=== PATIENT | male | born 1965 | race African-American/Black ===

== ENCOUNTER 2018-08-13 14:16 | Emergency (ER) | payer MEDICARE, OTHER ==
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
[2018-08-13 15:11] LABS: BASO # 0.1 x10^3/uL (0.0-0.2); BASO % 1 % (0-3); EOS % 1 % (0-3); HEMATOCRIT 36.7 % (39.0-53.0); HEMOGLOBIN 12.3 g/dL (13.0-17.5); LYMPH # 2.2 x10^3/uL (1.0-4.8); LYMPH % 52 % (24-48); MEAN CORPUSCULAR HEMOGLOBIN 27 pg (25-35); MEAN CORPUSCULAR HGB CONC 33 g/dL (31-37); MEAN CORPUSCULAR VOLUME 80 fL (79-100); MONO # 0.4 x10^3/uL (0.0-1.1); MONO % 9 % (0-9); NEUT # 1.5 x10^3uL (1.8-7.7); NEUT % 36 % (31-73); PLATELET COUNT 129 x10^3/uL (140-400); RED BLOOD COUNT 4.61 x10^6/uL (4.30-5.70); RED CELL DISTRIBUTION WIDTH 13.3 % (11.5-14.5); WHITE BLOOD COUNT 4.2 x10^3/uL (4.0-11.0)
[2018-08-13 15:24] LABS: ALBUMIN 3.7 g/dL (3.4-5.0); ALBUMIN/GLOBULIN RATIO 0.9 (1.0-1.7); CALCIUM 9.1 mg/dL (8.5-10.1); CREATININE 0.8 mg/dL (0.7-1.3); GFR 121.4; MAGNESIUM 2.1 mg/dL (1.8-2.4); POTASSIUM 4.3 mmol/L (3.5-5.1); TOTAL BILIRUBIN 0.2 mg/dL (0.2-1.0); TOTAL PROTEIN 7.9 g/dL (6.4-8.2)
[2018-08-13 17:14] VITALS: BP 128/85
[2018-08-13 17:16] LABS: BACTERIA,URINE 0 /HPF (0-FEW); BILIRUBIN,URINE NEG (NEG); CLARITY,URINE HAZY; COLOR,URINE YELLOW; GLUCOSE,URINE NEG (NEG); NITRITE,URINE NEG (NEG); RBC,URINE 0 /HPF (0-2); SQUAMOUS EPITHELIAL CELL,UR OCC /LPF; UROBILINOGEN,URINE 0.2 mg/dL (0.2 mg/dL); WBC,URINE 0 /HPF (0-4)
--- NOTE | 2018-08-13 17:53 | EKG ---
[address] [address] Test Date: 2018-08-13 Test Time: 14:46:03 Pat Name: LEATHA URBANO Department: Room: Gender: M Application Design Engineer: LOVELY : 1965 Requested By: LUIS STEINBERG Order Number: [id number] Reading MD: Measurements Intervals [place] Rate: 75 P: 45 DE: 162 QRS: 82 QRSD: 102 T: 13 QT: 358 QTc: 402 Interpretive Statements SINUS RHYTHM NORMAL ECG RI6.01 No previous ECG available for comparison
== END 2018-08-13 19:39 | disposition home or self-care (01) ==
LOC: ER 14:16
DX: Z02.89 Encounter for other administrative examinations (principal); F41.9 Anxiety disorder, unspecified; I10 Essential (primary) hypertension; F03.90 Unspecified dementia, unspecified severity, without behavioral disturbance, psychotic disturbance, mood disturbance, and anxiety
CPT/HCPCS: 36415; 80053; 81001; 83540; 83550; 83735; 85025; 93005; 99285

== ENCOUNTER 2018-08-20 15:37 | Inpatient (IN) | payer MEDICARE ==
[~2018-08-20] VITALS: Ht 172.7 cm; Wt 83.9 kg
[2018-08-20 16:32] LABS: BACTERIA,URINE 0 /HPF (0-FEW); BILIRUBIN,URINE NEG (NEG); CLARITY,URINE HAZY; COLOR,URINE YELLOW; GLUCOSE,URINE NEG (NEG); NITRITE,URINE NEG (NEG); RBC,URINE 0 /HPF (0-2); SQUAMOUS EPITHELIAL CELL,UR OCC /LPF; UROBILINOGEN,URINE 0.2 mg/dL (0.2 mg/dL); WBC,URINE 0 /HPF (0-4)
[2018-08-20 16:34] LABS: AMPHETAMINE/METHAMPHETAMINE NEG (NEG); BARBITURATES NEG (NEG); BENZODIAZEPINES NEG (NEG); CANNABINOIDS NEG (NEG); COCAINE NEG (NEG); METHADONE NEG (NEG); OPIATES NEG (NEG); PHENCYCLIDINE NEG (NEG)
[2018-08-20 16:40] LABS: ALBUMIN 3.9 g/dL (3.4-5.0); ALBUMIN/GLOBULIN RATIO 0.9 (1.0-1.7); CALCIUM 9.4 mg/dL (8.5-10.1); CREATININE 0.8 mg/dL (0.7-1.3); GFR 121.4; POTASSIUM 4.2 mmol/L (3.5-5.1); TOTAL BILIRUBIN 0.2 mg/dL (0.2-1.0); TOTAL PROTEIN 8.2 g/dL (6.4-8.2)
[2018-08-20 16:45] LABS: BASO % 1 % (0-3); EOS # 0.1 x10^3/uL (0.0-0.7); EOS % 1 % (0-3); HEMATOCRIT 37.1 % (39.0-53.0); HEMOGLOBIN 12.3 g/dL (13.0-17.5); LYMPH # 2.3 x10^3/uL (1.0-4.8); LYMPH % 53 % (24-48); MEAN CORPUSCULAR HEMOGLOBIN 27 pg (25-35); MEAN CORPUSCULAR HGB CONC 33 g/dL (31-37); MEAN CORPUSCULAR VOLUME 81 fL (79-100); MONO # 0.3 x10^3/uL (0.0-1.1); MONO % 8 % (0-9); NEUT # 1.6 x10^3uL (1.8-7.7); NEUT % 38 % (31-73); PLATELET COUNT 121 x10^3/uL (140-400); RED BLOOD COUNT 4.56 x10^6/uL (4.30-5.70); RED CELL DISTRIBUTION WIDTH 13.4 % (11.5-14.5); WHITE BLOOD COUNT 4.3 x10^3/uL (4.0-11.0)
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
[2018-08-20 17:15] VITALS: BP 161/94
[2018-08-20] MEDS ORDERED: NON FORMULARY ITEM (Menthol (Biofreeze) 1 APP) TP PRN (18:15)
[2018-08-20] MEDS ORDERED: MAGNESIUM HYDROXIDE 2,400 MG/30 ML ORAL.SUSP. PO PRN (18:15)
[2018-08-20] MEDS ORDERED: ACETAMINOPHEN 325 MG TABLET PO PRN (18:15)
[2018-08-20] MEDS ORDERED: MAG HYDROX/AL HYDROX/SIMETH 30 ML ORAL.SUSP PO PRN (18:15)
[2018-08-20] MEDS ORDERED: DOCU-109 PO (18:41)
[2018-08-20] MEDS ORDERED: SHAR1SUP RC (18:41)
[2018-08-20] MEDS ORDERED: POLY17PO5 PO (18:41)
[2018-08-20] MEDS ORDERED: CARB200T PO (18:41)
[2018-08-20] MEDS ORDERED: DIVA500T2 PO (18:41)
[2018-08-20] MEDS ORDERED: QUET25TA5 PO (18:41)
[2018-08-20] MEDS ORDERED: ACET325T9 PO (18:41)
[2018-08-20] MEDS ORDERED: MELA3TAB2 PO (18:41)
[2018-08-20] MEDS ORDERED: MENT118G TP (18:41)
[2018-08-20] MEDS ORDERED: PHEN1SUP75 RC (18:41)
[2018-08-20] MEDS ORDERED: FLUT9.9S NS (18:41)
[2018-08-20] MEDS ORDERED: ECHI400C12 PO (18:41)
[2018-08-20] MEDS ORDERED: AMLO5TAB10 PO (18:41)
[2018-08-20] MEDS ORDERED: LORA-254 PO (18:41)
[2018-08-20] MEDS ORDERED: PHENYLEPH/MINERAL OIL/PETROLAT RECTAL OINTMENT 57GM TUBE. RC PRN (19:15)
[2018-08-20] MEDS: carBAMazepine 200 MG TABLET PO SCH (20:19)
[2018-08-20] MEDS: DOCUSATE SODIUM 100 MG CAPSULE PO SCH (20:19)
[2018-08-20] MEDS: QUEtiapine 25 MG TABLET. PO SCH (20:20)
[2018-08-20] MEDS: MELATONIN 3 MG TABLET PO SCH (20:20)
[2018-08-20] MEDS: DIVALPROEX SODIUM 250 MG TABLET.DR. PO SCH (20:20)
[2018-08-20] MEDS: METHYL SALICYLATE/MENTHOL TOPICAL OINTMENT 29GM TUBE. TP PRN (21:20)
--- NOTE | 2018-08-20 22:11 | PDOC ---
Exam Note: Jm Note: Please also refer to the separate dictated note~for this date of service dictated separately. Discussed the patient with Nursing staff reviewed the chart.~Reviewed interim history and current functioning. Reviewed vital signs,~Labs/ Radiology~and current medications noted below. Continue current treatment with the changes noted in the dictated addendum note Assessment: Vital Signs/I&O: Vital Signs Date Time Temp Pulse Resp B/P (MAP) Pulse Ox O2 Delivery O2 Flow Rate FiO2 08/20/18 17:15 99.2 94 18 161/94 (116) 100 Room Air Labs: Laboratory Tests Test 08/20/18 16:12 08/20/18 19:31 White Blood Count 4.3 x10^3/uL (4.0-11.0) Red Blood Count 4.56 x10^6/uL (4.30-5.70) Hemoglobin 12.3 g/dL (13.0-17.5) L Hematocrit 37.1 % (39.0-53.0) L Mean Corpuscular Volume 81 fL (79-100) Mean Corpuscular Hemoglobin 27 pg (25-35) Mean Corpuscular Hemoglobin Concent 33 g/dL (31-37) Red Cell Distribution Width 13.4 % (11.5-14.5) Platelet Count 121 x10^3/uL (140-400) L Neutrophils (%) (Auto) 38 % (31-73) Lymphocytes (%) (Auto) 53 % (24-48) H Monocytes (%) (Auto) 8 % (0-9) Eosinophils (%) (Auto) 1 % (0-3) Basophils (%) (Auto) 1 % (0-3) Neutrophils # (Auto) 1.6 x10^3uL (1.8-7.7) L Lymphocytes # (Auto) 2.3 x10^3/uL (1.0-4.8) Monocytes # (Auto) 0.3 x10^3/uL (0.0-1.1) Eosinophils # (Auto) 0.1 x10^3/uL (0.0-0.7) Basophils # (Auto) 0.0 x10^3/uL (0.0-0.2) Urine Collection Type Unknown Urine Color Yellow Urine Clarity Hazy Urine pH 7.5 Urine Specific [place] 1.020 Urine Protein Neg (NEG-TRACE) Urine Glucose (UA) Neg mg/dL (NEG) Urine Ketones (Stick) Neg mg/dL (NEG) Urine Blood Neg (NEG) Urine Nitrite Neg (NEG) Urine Bilirubin Neg (NEG) Urine Urobilinogen Dipstick 0.2 mg/dL (0.2 mg/dL) Urine Leukocyte Esterase Neg (NEG) Urine RBC 0 /HPF (0-2) Urine WBC 0 /HPF (0-4) Urine Squamous Epithelial Cells Occ /LPF Urine Bacteria 0 /HPF (0-FEW) Sodium Level 140 mmol/L (136-145) Potassium Level 4.2 mmol/L (3.5-5.1) Chloride Level 105 mmol/L (98-107) Carbon Dioxide Level 28 mmol/L (21-32) Anion Gap 7 (6-14) Blood Urea Nitrogen 11 mg/dL (8-26) Creatinine 0.8 mg/dL (0.7-1.3) Estimated GFR (Cockcroft-Gault) 121.4 BUN/Creatinine Ratio 14 (6-20) Glucose Level 77 mg/dL (70-99) Calcium Level 9.4 mg/dL (8.5-10.1) Magnesium Level 2.1 mg/dL (1.8-2.4) Total Bilirubin 0.2 mg/dL (0.2-1.0) Aspartate Amino Transferase (AST) 18 U/L (15-37) Alanine Aminotransferase (ALT) 23 U/L (16-63) Alkaline Phosphatase 92 U/L (46-116) Total Protein 8.2 g/dL (6.4-8.2) Albumin 3.9 g/dL (3.4-5.0) Albumin/Globulin Ratio 0.9 (1.0-1.7) L Urine Opiates Screen Neg (NEG) Urine Methadone Screen Neg (NEG) Urine Barbiturates Neg (NEG) Urine Phencyclidine Screen Neg (NEG) Urine Amphetamine/Methamphetamine Neg (NEG) Urine Benzodiazepines Screen Neg (NEG) Urine Cocaine Screen Neg (NEG) Urine Cannabinoids Screen Neg (NEG) Ethyl Alcohol Level < 10 mg/dL (0-10) Urine Ethyl Alcohol Neg (NEG) Glucose (Fingerstick) 106 mg/dL (70-99) H Current Medications: Meds: Current Medications Medications (Trade) Dose Ordered Sig/Kassandra Route PRN Reason Start Time Stop Time Status Last Admin Dose Admin Multi-Ingredient Ointment (Analgesic Wallace) 1 amanda PRN QID PRN TP MUSCLE PAIN 08/20/18 18:15 08/20/18 21:20 Carbamazepine (TEGretol) 200 mg BID PO 08/20/18 21:00 08/20/18 20:19 Divalproex Sodium (Depakote) 250 mg BID PO 08/20/18 21:00 08/20/18 20:20 Docusate Sodium (Colace) 100 mg BID PO 08/20/18 21:00 08/20/18 20:19 Melatonin 6 mg QHS PO 08/20/18 21:00 08/20/18 20:20 Quetiapine Fumarate (SEROquel) 25 mg TID PO 08/20/18 21:00 08/20/18 20:20 I have reviewed the current psychotropics carefully including drug interactions. Risk benefit ratio favors no change other than as noted in my dictated progress note. Diagnosis: Problems: (1) Anxiety disorder (2) Impulse control disorder (3) Dementia, vascular, with delusions (4) Dementia, vascular, with depression (5) Dementia in Alzheimer's disease with delusions (6) Dementia in Alzheimer's disease with depression (7) Impulse control disorder (8) Borderline intellectual disability MAVIS FRITZ MD Aug 20, 2018 22:11
[2018-08-21 03:08] LABS: HEMOGLOBIN A1C 5.3 % (4.8-5.6); THYROXINE 4.2 ug/dL (4.5-12.0)
[2018-08-21 06:13] VITALS: BP 151/100
[2018-08-21 07:41] LABS: VAL ACID 39 mcg/mL (50-100)
[2018-08-21] MEDS: DIVALPROEX SODIUM 250 MG TABLET.DR. PO SCH (08:07)
[2018-08-21] MEDS: QUEtiapine 25 MG TABLET. PO SCH ×3 (08:07→19:52)
[2018-08-21] MEDS: carBAMazepine 200 MG TABLET PO SCH ×2 (08:07→19:52)
[2018-08-21] MEDS: DOCUSATE SODIUM 100 MG CAPSULE PO SCH ×2 (08:08→19:52)
[2018-08-21] MEDS: FLUTICASONE 50MCG/NASAL SPRAY 16GM BOTTLE. NS SCH (08:08)
[2018-08-21] MEDS: LORazepam 0.5 MG TABLET PO SCH (08:12)
[2018-08-21] MEDS: amLODIPine BESYLATE 5 MG TABLET PO SCH (08:12)
[2018-08-21] MEDS ORDERED: POLYETHYLENE GLYCOL 3350 17 GM PACKET. PO PRN (09:00)
[2018-08-21] MEDS ORDERED: ECHINACEA PO SCH (09:00)
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
[2018-08-21 15:54] VITALS: BP 118/77
[2018-08-21 18:12] LABS: CARBAM 5.7 mcg/mL (4.0-12.0)
[2018-08-21 18:18] LABS: THYROID STIM HORMONE (TSH) 3.346 uIU/mL (0.358-3.740)
[2018-08-21] MEDS: MELATONIN 3 MG TABLET PO SCH (19:52)
[2018-08-21] MEDS: DIVALPROEX 125 MG CAP.SPRINK PO SCH (19:54)
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
[2018-08-22 06:12] VITALS: BP 139/83
[2018-08-22] MEDS: METHYL SALICYLATE/MENTHOL TOPICAL OINTMENT 29GM TUBE. TP PRN (06:12)
[2018-08-22] MEDS: carBAMazepine 200 MG TABLET PO SCH ×2 (07:27→20:00)
[2018-08-22] MEDS: amLODIPine BESYLATE 5 MG TABLET PO SCH (07:27)
[2018-08-22] MEDS: QUEtiapine 25 MG TABLET. PO SCH ×3 (07:27→20:00)
[2018-08-22] MEDS: DOCUSATE SODIUM 100 MG CAPSULE PO SCH ×2 (07:27→20:00)
[2018-08-22] MEDS: FLUTICASONE 50MCG/NASAL SPRAY 16GM BOTTLE. NS SCH (07:29)
[2018-08-22] MEDS: LORazepam 0.5 MG TABLET PO SCH (07:29)
[2018-08-22] MEDS: DIVALPROEX SODIUM 250 MG TABLET.DR. PO SCH (09:00)
--- NOTE | 2018-08-22 10:09 | PDOC ---
Exam Note: Jm Note: Late entry for DOS 08/21/2018. Please also refer to the separate dictated note~for this date of service dictated separately.~Patient seen individually. Discussed the patient with Nursing staff reviewed the chart.~Reviewed interim history and current functioning. Reviewed vital signs,~Labs/ Radiology~and current medications noted below. Continue current treatment with the changes noted in the dictated addendum note Assessment: Vital Signs/I&O: Vital Signs Date Time Temp Pulse Resp B/P (MAP) Pulse Ox O2 Delivery O2 Flow Rate FiO2 08/22/18 07:27 86 139/83 08/22/18 06:12 98.4 16 94 Room Air I & O 08/21/18 08/21/18 08/22/18 14:59 22:59 06:59 Intake Total 480 ml 480 ml 240 ml Balance 480 ml 480 ml 240 ml Current Medications: Meds: Current Medications Medications (Trade) Dose Ordered Sig/Kassandra Route PRN Reason Start Time Stop Time Status Last Admin Dose Admin Divalproex Sodium (Depakote) 250 mg DAILY PO 08/22/18 09:00 08/22/18 09:00 Divalproex Sodium (Depakote Sprinkles) 500 mg HS PO 08/21/18 21:00 08/21/18 19:54 I have reviewed the current psychotropics carefully including drug interactions. Risk benefit ratio favors no change other than as noted in my dictated progress note. Diagnosis: Problems: (1) Anxiety disorder (2) Impulse control disorder (3) Dementia, vascular, with delusions (4) Dementia, vascular, with depression (5) Dementia in Alzheimer's disease with delusions (6) Dementia in Alzheimer's disease with depression (7) Impulse control disorder (8) Borderline intellectual disability MAVIS FRITZ MD Aug 22, 2018 10:09
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
[2018-08-22 15:50] VITALS: BP 148/85
[2018-08-22] MEDS: DIVALPROEX 125 MG CAP.SPRINK PO SCH (20:00)
[2018-08-22] MEDS: MELATONIN 3 MG TABLET PO SCH (20:01)
--- NOTE | 2018-08-22 22:15 | PDOC ---
Exam Note: Jm Note: Please also refer to the separate dictated note~for this date of service dictated separately.~Patient seen individually. Discussed the patient with Nursing staff reviewed the chart.~Reviewed interim history and current functioning. Reviewed vital signs,~Labs/ Radiology~and current medications noted below. Continue current treatment with the changes noted in the dictated addendum note Assessment: Vital Signs/I&O: Vital Signs Date Time Temp Pulse Resp B/P (MAP) Pulse Ox O2 Delivery O2 Flow Rate FiO2 08/22/18 15:50 97.6 82 18 148/85 (106) 94 08/22/18 06:12 Room Air I & O 08/21/18 08/21/18 08/22/18 14:59 22:59 06:59 Intake Total 480 ml 480 ml 240 ml Balance 480 ml 480 ml 240 ml Current Medications: Meds: Current Medications Medications (Trade) Dose Ordered Sig/Kassandra Route PRN Reason Start Time Stop Time Status Last Admin Dose Admin Divalproex Sodium (Depakote) 250 mg DAILY PO 08/22/18 09:00 08/22/18 09:00 I have reviewed the current psychotropics carefully including drug interactions. Risk benefit ratio favors no change other than as noted in my dictated progress note. Diagnosis: Problems: (1) Anxiety disorder (2) Impulse control disorder (3) Dementia, vascular, with delusions (4) Dementia, vascular, with depression (5) Dementia in Alzheimer's disease with delusions (6) Dementia in Alzheimer's disease with depression (7) Impulse control disorder (8) Borderline intellectual disability MAVIS FRITZ MD Aug 22, 2018 22:15
[2018-08-23 05:48] VITALS: BP 125/82
[2018-08-23] MEDS: DIVALPROEX SODIUM 250 MG TABLET.DR. PO SCH (07:37)
[2018-08-23] MEDS: carBAMazepine 200 MG TABLET PO SCH ×2 (07:37→20:01)
[2018-08-23] MEDS: DOCUSATE SODIUM 100 MG CAPSULE PO SCH ×2 (07:38→20:01)
[2018-08-23] MEDS: QUEtiapine 25 MG TABLET. PO SCH ×3 (07:38→20:01)
[2018-08-23] MEDS: amLODIPine BESYLATE 5 MG TABLET PO SCH (07:39)
[2018-08-23] MEDS: FLUTICASONE 50MCG/NASAL SPRAY 16GM BOTTLE. NS SCH (07:41)
[2018-08-23] MEDS: LORazepam 0.5 MG TABLET PO SCH (07:41)
[2018-08-23] MEDS: ACETAMINOPHEN 325 MG TABLET PO PRN (12:55)
[2018-08-23 15:35] VITALS: BP 118/77
[2018-08-23] MEDS: DIVALPROEX 125 MG CAP.SPRINK PO SCH (20:01)
[2018-08-23] MEDS: MELATONIN 3 MG TABLET PO SCH (20:01)
--- NOTE | 2018-08-23 22:36 | PDOC ---
Exam Note: Jm Note: Please also refer to the separate dictated note~for this date of service dictated separately.~Patient seen individually. Discussed the patient with Nursing staff reviewed the chart.~Reviewed interim history and current functioning. Reviewed vital signs,~Labs/ Radiology~and current medications noted below. Continue current treatment with the changes noted in the dictated addendum note Assessment: Vital Signs/I&O: Vital Signs Date Time Temp Pulse Resp B/P (MAP) Pulse Ox O2 Delivery O2 Flow Rate FiO2 08/23/18 15:35 97.8 84 19 118/77 (91) 100 Room Air I & O 08/22/18 08/22/18 08/23/18 14:59 22:59 06:59 Intake Total 720 ml 600 ml Balance 720 ml 600 ml Current Medications: I have reviewed the current psychotropics carefully including drug interactions. Risk benefit ratio favors no change other than as noted in my dictated progress note. Diagnosis: Problems: (1) Anxiety disorder (2) Impulse control disorder (3) Dementia, vascular, with delusions (4) Dementia, vascular, with depression (5) Dementia in Alzheimer's disease with delusions (6) Dementia in Alzheimer's disease with depression (7) Impulse control disorder (8) Borderline intellectual disability MAVIS FRITZ MD Aug 23, 2018 22:36
[2018-08-24 05:45] VITALS: BP 116/85
[2018-08-24 06:36] LABS: BASO % 1 % (0-3); EOS # 0.1 x10^3/uL (0.0-0.7); EOS % 2 % (0-3); HEMATOCRIT 36.3 % (39.0-53.0); HEMOGLOBIN 12.1 g/dL (13.0-17.5); LYMPH # 2.3 x10^3/uL (1.0-4.8); LYMPH % 55 % (24-48); MEAN CORPUSCULAR HEMOGLOBIN 27 pg (25-35); MEAN CORPUSCULAR HGB CONC 33 g/dL (31-37); MEAN CORPUSCULAR VOLUME 82 fL (79-100); MONO # 0.3 x10^3/uL (0.0-1.1); MONO % 8 % (0-9); NEUT # 1.4 x10^3uL (1.8-7.7); NEUT % 34 % (31-73); PLATELET COUNT 114 x10^3/uL (140-400); RED BLOOD COUNT 4.43 x10^6/uL (4.30-5.70); RED CELL DISTRIBUTION WIDTH 13.6 % (11.5-14.5); WHITE BLOOD COUNT 4.1 x10^3/uL (4.0-11.0)
[2018-08-24 06:47] LABS: ALBUMIN 3.4 g/dL (3.4-5.0); ALBUMIN/GLOBULIN RATIO 0.8 (1.0-1.7); CALCIUM 8.9 mg/dL (8.5-10.1); CREATININE 0.8 mg/dL (0.7-1.3); GFR 121.4; POTASSIUM 4.4 mmol/L (3.5-5.1); TOTAL BILIRUBIN 0.2 mg/dL (0.2-1.0); TOTAL PROTEIN 7.5 g/dL (6.4-8.2)
[2018-08-24 07:10] LABS: VAL ACID 45 mcg/mL (50-100)
[2018-08-24] MEDS: DOCUSATE SODIUM 100 MG CAPSULE PO SCH ×2 (08:02→19:40)
[2018-08-24] MEDS: carBAMazepine 200 MG TABLET PO SCH ×2 (08:03→19:40)
[2018-08-24] MEDS: QUEtiapine 25 MG TABLET. PO SCH ×3 (08:03→19:40)
[2018-08-24] MEDS: DIVALPROEX SODIUM 250 MG TABLET.DR. PO SCH (08:03)
[2018-08-24] MEDS: amLODIPine BESYLATE 5 MG TABLET PO SCH (08:03)
[2018-08-24] MEDS: FLUTICASONE 50MCG/NASAL SPRAY 16GM BOTTLE. NS SCH (08:04)
[2018-08-24] MEDS: LORazepam 0.5 MG TABLET PO SCH (08:05)
[2018-08-24 15:59] VITALS: BP 121/80
--- NOTE | 2018-08-24 17:58 | PN ---
DATE: 08/22/2018 PSYCHIATRIC PROGRESS NOTE This late entry of August 22 covers the elements not covered in my initial note. SUBJECTIVE: I met with the patient in the evening of August 22. The patient slept 7 hours previous night. He has been sexually inappropriate, tried to grab the social service staff on their bottom the day before, blowing kisses at nursing staff, oblivious of the inappropriateness of this, partly consequent to his intellectual disability. REVIEW OF SYSTEMS: Ambulation impaired, in wheelchair. No CV, , pulmonary, eye, ENT system symptoms on review. Reliability poor. MENTAL STATUS EXAM: Oriented to himself. Insight, judgment, recent and remote memory, attention, concentration, fund of knowledge poor, consistent with his diagnosis mentioned in my initial note. PLAN: Continue current psychotropics. Depakote has been increased. We will reach a therapeutic level and then decide whether Provera might be an option. Maintain Tegretol, may need to check a Tegretol blood level as well. Rest unchanged including Ativan, which at some point we will taper and the Seroquel 25 mg t.i.d. MAN Elvin FRITZ MD DR: STEPH/payal JOB#: [id number] / [id number]
[2018-08-24] MEDS: DIVALPROEX 125 MG CAP.SPRINK PO SCH (19:40)
[2018-08-24] MEDS: MELATONIN 3 MG TABLET PO SCH (19:40)
--- NOTE | 2018-08-24 22:12 | PDOC ---
Exam Note: Jm Note: Please also refer to the separate dictated note~for this date of service dictated separately.~Patient seen individually. Discussed the patient with Nursing staff reviewed the chart.~Reviewed interim history and current functioning. Reviewed vital signs,~Labs/ Radiology~and current medications noted below. Continue current treatment with the changes noted in the dictated addendum note Assessment: Vital Signs/I&O: Vital Signs Date Time Temp Pulse Resp B/P (MAP) Pulse Ox O2 Delivery O2 Flow Rate FiO2 08/24/18 15:59 97.9 86 20 121/80 (94) 99 08/24/18 05:45 Room Air I & O 08/23/18 08/23/18 08/24/18 14:59 22:59 06:59 Intake Total 720 ml 240 ml 420 ml Balance 720 ml 240 ml 420 ml Labs: Laboratory Tests Test 08/24/18 06:23 White Blood Count 4.1 x10^3/uL (4.0-11.0) Red Blood Count 4.43 x10^6/uL (4.30-5.70) Hemoglobin 12.1 g/dL (13.0-17.5) L Hematocrit 36.3 % (39.0-53.0) L Mean Corpuscular Volume 82 fL (79-100) Mean Corpuscular Hemoglobin 27 pg (25-35) Mean Corpuscular Hemoglobin Concent 33 g/dL (31-37) Red Cell Distribution Width 13.6 % (11.5-14.5) Platelet Count 114 x10^3/uL (140-400) L Neutrophils (%) (Auto) 34 % (31-73) Lymphocytes (%) (Auto) 55 % (24-48) H Monocytes (%) (Auto) 8 % (0-9) Eosinophils (%) (Auto) 2 % (0-3) Basophils (%) (Auto) 1 % (0-3) Neutrophils # (Auto) 1.4 x10^3uL (1.8-7.7) L Lymphocytes # (Auto) 2.3 x10^3/uL (1.0-4.8) Monocytes # (Auto) 0.3 x10^3/uL (0.0-1.1) Eosinophils # (Auto) 0.1 x10^3/uL (0.0-0.7) Basophils # (Auto) 0.0 x10^3/uL (0.0-0.2) Sodium Level 141 mmol/L (136-145) Potassium Level 4.4 mmol/L (3.5-5.1) Chloride Level 105 mmol/L (98-107) Carbon Dioxide Level 27 mmol/L (21-32) Anion Gap 9 (6-14) Blood Urea Nitrogen 10 mg/dL (8-26) Creatinine 0.8 mg/dL (0.7-1.3) Estimated GFR (Cockcroft-Gault) 121.4 BUN/Creatinine Ratio 13 (6-20) Glucose Level 107 mg/dL (70-99) H Calcium Level 8.9 mg/dL (8.5-10.1) Total Bilirubin 0.2 mg/dL (0.2-1.0) Aspartate Amino Transferase (AST) 15 U/L (15-37) Alanine Aminotransferase (ALT) 20 U/L (16-63) Alkaline Phosphatase 84 U/L (46-116) Total Protein 7.5 g/dL (6.4-8.2) Albumin 3.4 g/dL (3.4-5.0) Albumin/Globulin Ratio 0.8 (1.0-1.7) L Valproic Acid Level 45 mcg/mL (50-100) L Valproic Acid Last Dose Date 08/23/18 Valproic Acid Last Dose Time 2100 Current Medications: Meds: Current Medications Medications (Trade) Dose Ordered Sig/Kassandra Route PRN Reason Start Time Stop Time Status Last Admin Dose Admin Lorazepam (Ativan) 0.25 mg DAILY PO 08/24/18 09:00 08/26/18 00:00 08/24/18 08:05 Divalproex Sodium (Depakote Sprinkles) 500 mg BID PO 08/24/18 21:00 08/24/18 19:40 I have reviewed the current psychotropics carefully including drug interactions. Risk benefit ratio favors no change other than as noted in my dictated progress note. Diagnosis: Problems: (1) Anxiety disorder (2) Impulse control disorder (3) Dementia, vascular, with delusions (4) Dementia, vascular, with depression (5) Dementia in Alzheimer's disease with delusions (6) Dementia in Alzheimer's disease with depression (7) Impulse control disorder (8) Borderline intellectual disability MAVIS FRITZ MD Aug 24, 2018 22:12
[2018-08-25 05:55] VITALS: BP 139/90
[2018-08-25] MEDS: QUEtiapine 25 MG TABLET. PO SCH ×3 (07:53→19:41)
[2018-08-25] MEDS: carBAMazepine 200 MG TABLET PO SCH ×2 (07:53→19:41)
[2018-08-25] MEDS: amLODIPine BESYLATE 5 MG TABLET PO SCH (07:53)
[2018-08-25] MEDS: DOCUSATE SODIUM 100 MG CAPSULE PO SCH ×2 (07:53→19:41)
[2018-08-25] MEDS: DIVALPROEX 125 MG CAP.SPRINK PO SCH ×2 (07:53→19:41)
[2018-08-25] MEDS: FLUTICASONE 50MCG/NASAL SPRAY 16GM BOTTLE. NS SCH (07:54)
[2018-08-25] MEDS: LORazepam 0.5 MG TABLET PO SCH (07:55)
[2018-08-25 16:02] VITALS: BP 133/84
[2018-08-25] MEDS: MELATONIN 3 MG TABLET PO SCH (19:41)
--- NOTE | 2018-08-25 22:18 | PDOC ---
Exam Note: Jm Note: Please also refer to the separate dictated note~for this date of service dictated separately.~Patient seen individually. Discussed the patient with Nursing staff reviewed the chart.~Reviewed interim history and current functioning. Reviewed vital signs,~Labs/ Radiology~and current medications noted below. Continue current treatment with the changes noted in the dictated addendum note Assessment: Vital Signs/I&O: Vital Signs Date Time Temp Pulse Resp B/P (MAP) Pulse Ox O2 Delivery O2 Flow Rate FiO2 08/25/18 16:02 98.3 102 16 133/84 (100) 88 08/24/18 05:45 Room Air I & O 08/24/18 08/24/18 08/25/18 15:00 23:00 07:00 Intake Total 720 ml 360 ml Output Total 300 ml Balance 720 ml 360 ml -300 ml Current Medications: I have reviewed the current psychotropics carefully including drug interactions. Risk benefit ratio favors no change other than as noted in my dictated progress note. Diagnosis: Problems: (1) Anxiety disorder (2) Impulse control disorder (3) Dementia, vascular, with delusions (4) Dementia, vascular, with depression (5) Dementia in Alzheimer's disease with delusions (6) Dementia in Alzheimer's disease with depression (7) Impulse control disorder (8) Borderline intellectual disability MAVIS FRITZ MD Aug 25, 2018 22:18
--- NOTE | 2018-08-26 02:24 | PN ---
DATE: 08/23/2018 PSYCHIATRIC PROGRESS NOTE This late entry, 08/23/2018, covers elements not covered in my initial note. SUBJECTIVE: I met with the patient at length in the evening. The patient slept 6-1/2 hours previous night. He has been sexually inappropriate with female staff, but compliant with medications. Overall intellectual functioning consistent with his disability and probable age of about eighth grade. REVIEW OF SYSTEMS: Ambulation impaired, in wheelchair. No CV, , pulmonary, eye, ENT system symptoms on review. Reliability poor. Speech difficult to understand at times typical for him. MENTAL STATUS EXAM: Oriented to himself. Insight, judgment, recent and remote memory, attention, concentration, fund of knowledge poor, consistent with his diagnosis mentioned in my initial note. PLAN: No change from initial note. MAN Elvin FRITZ MD DR: STEPH/payal JOB#: [id number] / [id number]
[2018-08-26 06:17] VITALS: BP 128/86
[2018-08-26] MEDS: DIVALPROEX 125 MG CAP.SPRINK PO SCH ×2 (08:23→20:07)
[2018-08-26] MEDS: carBAMazepine 200 MG TABLET PO SCH ×2 (08:23→20:06)
[2018-08-26] MEDS: amLODIPine BESYLATE 5 MG TABLET PO SCH (08:24)
[2018-08-26] MEDS: QUEtiapine 25 MG TABLET. PO SCH ×3 (08:24→20:07)
[2018-08-26] MEDS: DOCUSATE SODIUM 100 MG CAPSULE PO SCH ×2 (08:24→20:06)
[2018-08-26] MEDS: FLUTICASONE 50MCG/NASAL SPRAY 16GM BOTTLE. NS SCH (08:25)
[2018-08-26] MEDS: ACETAMINOPHEN 325 MG TABLET PO PRN (08:59)
[2018-08-26 16:03] VITALS: BP 123/85
[2018-08-26] MEDS: MELATONIN 3 MG TABLET PO SCH (20:06)
--- NOTE | 2018-08-26 22:05 | PDOC ---
Exam Note: Jm Note: Please also refer to the separate dictated note~for this date of service dictated separately.~Patient seen individually. Discussed the patient with Nursing staff reviewed the chart.~Reviewed interim history and current functioning. Reviewed vital signs,~Labs/ Radiology~and current medications noted below. Continue current treatment with the changes noted in the dictated addendum note Assessment: Vital Signs/I&O: Vital Signs Date Time Temp Pulse Resp B/P (MAP) Pulse Ox O2 Delivery O2 Flow Rate FiO2 08/26/18 16:03 97.7 79 20 123/85 (98) 97 08/24/18 05:45 Room Air I & O 08/25/18 08/25/18 08/26/18 14:59 22:59 06:59 Intake Total 360 ml 720 ml Balance 360 ml 720 ml Current Medications: I have reviewed the current psychotropics carefully including drug interactions. Risk benefit ratio favors no change other than as noted in my dictated progress note. Diagnosis: Problems: (1) Anxiety disorder (2) Impulse control disorder (3) Dementia, vascular, with delusions (4) Dementia, vascular, with depression (5) Dementia in Alzheimer's disease with delusions (6) Dementia in Alzheimer's disease with depression (7) Impulse control disorder (8) Borderline intellectual disability MAVIS FRITZ MD Aug 26, 2018 22:05
--- NOTE | 2018-08-27 05:53 | PN ---
DATE: 08/25/2018 PSYCHIATRIC PROGRESS NOTE This late entry 08/25/2018, covers elements not covered in my initial note. SUBJECTIVE: I met with the patient in the evening of 08/25/2018. The patient slept 5-3/4 hours previous night. He has been a little more interactive, but still functioning consistent with his intellectual disability. He has been less aggressive. REVIEW OF SYSTEMS: Ambulation impaired, in wheelchair. No CV, , pulmonary, eye, ENT system symptoms on review. Reliability poor. MENTAL STATUS EXAM: Oriented to himself. Insight, judgment, recent memory is impaired. Language function intact. Speech is difficult to understand at times. Abstraction fair, computation impaired. Mood and affect remain somewhat anxious, labile, but improved. LABORATORY DATA: Reviewed. IMPRESSION: Unchanged from initial note. PLAN: No change from initial note. MAN Elvin FRITZ MD DR: STEPH/payal JOB#: [id number] / [id number]
--- NOTE | 2018-08-27 05:55 | PN ---
DATE: 08/24/2018 PSYCHIATRIC PROGRESS NOTE This late entry of 08/24/2018 covers elements not covered in my initial note. SUBJECTIVE: I met with the patient in the evening of 08/24/2018. The patient slept 6-1/4 hours previous night. He has been intermittently agitated with another demented patient who was quite aggressive. Valproic acid level is 45. REVIEW OF SYSTEMS: Ambulation impaired in wheelchair. No CV, , pulmonary, eye, ENT system symptoms on review. Reliability poor. MENTAL STATUS EXAM: Oriented to himself. Insight, judgment, recent and remote memory, attention, concentration, fund of knowledge poor, consistent with his diagnosis as mentioned in my initial note. PLAN: Valproic acid level is subtherapeutic, increase Depakote from 250 a.m. and 500 at bedtime to 500 mg b.i.d. Check CBC, CMP, valproic acid level, ammonia level in 3 days. Rest unchanged from initial note. MAN Elvin FRITZ MD DR: STEPH/payal JOB#: [id number] / [id number]
[2018-08-27 06:29] VITALS: BP 171/94
[2018-08-27] MEDS: DOCUSATE SODIUM 100 MG CAPSULE PO SCH ×2 (07:54→20:29)
[2018-08-27] MEDS: DIVALPROEX 125 MG CAP.SPRINK PO SCH ×2 (07:54→20:29)
[2018-08-27] MEDS: carBAMazepine 200 MG TABLET PO SCH ×2 (07:55→20:29)
[2018-08-27] MEDS: amLODIPine BESYLATE 5 MG TABLET PO SCH (07:55)
[2018-08-27] MEDS: QUEtiapine 25 MG TABLET. PO SCH ×3 (07:55→20:29)
[2018-08-27] MEDS: FLUTICASONE 50MCG/NASAL SPRAY 16GM BOTTLE. NS SCH (08:05)
[2018-08-27] MEDS: SERTRALINE 25 MG TABLET. PO SCH (08:05)
[2018-08-27 15:31] VITALS: BP 105/74
[2018-08-27] MEDS: MELATONIN 3 MG TABLET PO SCH (20:29)
--- NOTE | 2018-08-27 22:08 | PDOC ---
Exam Note: Jm Note: Please also refer to the separate dictated note~for this date of service dictated separately.~Patient seen individually. Discussed the patient with Nursing staff reviewed the chart.~Reviewed interim history and current functioning. Reviewed vital signs,~Labs/ Radiology~and current medications noted below. Continue current treatment with the changes noted in the dictated addendum note Assessment: Vital Signs/I&O: Vital Signs Date Time Temp Pulse Resp B/P (MAP) Pulse Ox O2 Delivery O2 Flow Rate FiO2 08/27/18 15:31 98.4 88 16 105/74 (84) 95 08/24/18 05:45 Room Air I & O 08/26/18 08/26/18 08/27/18 15:00 23:00 07:00 Intake Total 720 ml 240 ml 240 ml Balance 720 ml 240 ml 240 ml Current Medications: Meds: Current Medications Medications (Trade) Dose Ordered Sig/Kassandra Route PRN Reason Start Time Stop Time Status Last Admin Dose Admin Sertraline HCl (Zoloft) 25 mg DAILY PO 08/27/18 09:00 08/29/18 23:50 08/27/18 08:05 I have reviewed the current psychotropics carefully including drug interactions. Risk benefit ratio favors no change other than as noted in my dictated progress note. Diagnosis: Problems: (1) Anxiety disorder (2) Dementia, vascular, with delusions (3) Dementia, vascular, with depression (4) Dementia in Alzheimer's disease with delusions (5) Dementia in Alzheimer's disease with depression (6) Impulse control disorder (7) Borderline intellectual disability (8) Major neurocognitive disorder MAVIS FRITZ MD Aug 27, 2018 22:08
[2018-08-28 05:59] VITALS: BP 147/94
[2018-08-28 06:45] LABS: BASO % 1 % (0-3); EOS # 0.1 x10^3/uL (0.0-0.7); EOS % 2 % (0-3); HEMATOCRIT 37.5 % (39.0-53.0); HEMOGLOBIN 12.4 g/dL (13.0-17.5); LYMPH % 46 % (24-48); MEAN CORPUSCULAR HEMOGLOBIN 27 pg (25-35); MEAN CORPUSCULAR HGB CONC 33 g/dL (31-37); MEAN CORPUSCULAR VOLUME 82 fL (79-100); MONO # 0.4 x10^3/uL (0.0-1.1); MONO % 9 % (0-9); NEUT # 1.9 x10^3uL (1.8-7.7); NEUT % 43 % (31-73); PLATELET COUNT 129 x10^3/uL (140-400); RED BLOOD COUNT 4.59 x10^6/uL (4.30-5.70); RED CELL DISTRIBUTION WIDTH 14.1 % (11.5-14.5); WHITE BLOOD COUNT 4.4 x10^3/uL (4.0-11.0)
[2018-08-28 06:52] LABS: ALBUMIN 3.4 g/dL (3.4-5.0); ALBUMIN/GLOBULIN RATIO 0.8 (1.0-1.7); ALK PHOS 78 U/L (46-116); ALT (SGPT) 24 U/L (16-63); ANION GAP 8 (6-14); AST (SGOT) 17 U/L (15-37); BLOOD UREA NITROGEN 15 mg/dL (8-26); BUN/CREATININE RATIO 19 (6-20); CALCIUM 8.8 mg/dL (8.5-10.1); CARBON DIOXIDE 28 mmol/L (21-32); CHLORIDE 104 mmol/L (98-107); CREATININE 0.8 mg/dL (0.7-1.3); GFR 121.4; GLUCOSE 95 mg/dL (70-99); POTASSIUM 4.3 mmol/L (3.5-5.1); SODIUM 140 mmol/L (136-145); TOTAL BILIRUBIN 0.2 mg/dL (0.2-1.0); TOTAL PROTEIN 7.7 g/dL (6.4-8.2)
[2018-08-28 06:53] LABS: VAL ACID 48 mcg/mL (50-100)
[2018-08-28] MEDS: FLUTICASONE 50MCG/NASAL SPRAY 16GM BOTTLE. NS SCH (08:01)
[2018-08-28] MEDS: DOCUSATE SODIUM 100 MG CAPSULE PO SCH ×2 (08:02→19:40)
[2018-08-28] MEDS: carBAMazepine 200 MG TABLET PO SCH ×2 (08:03→19:40)
[2018-08-28] MEDS: QUEtiapine 25 MG TABLET. PO SCH ×3 (08:03→19:39)
[2018-08-28] MEDS: amLODIPine BESYLATE 5 MG TABLET PO SCH (08:03)
[2018-08-28] MEDS: SERTRALINE 25 MG TABLET. PO SCH (08:03)
[2018-08-28] MEDS: DIVALPROEX 125 MG CAP.SPRINK PO SCH ×2 (08:03→19:38)
[2018-08-28 16:16] VITALS: BP 135/94
--- NOTE | 2018-08-28 18:03 | PN ---
DATE: 08/26/2018 PSYCHIATRIC PROGRESS NOTE This late entry 08/26/2018 covers elements not covered in my initial note. SUBJECTIVE: I met with the patient evening of 08/26/2018. He has been incontinent and urinating on the floor at night. He slept 4-1/2 hours. Tegretol level was 5.7 on the 08/21/2018. REVIEW OF SYSTEMS: Ambulation impaired, in wheelchair. No CV, , pulmonary, eye, ENT system symptoms on review. Reliability poor. MENTAL STATUS EXAM: Oriented to himself. Insight, judgment, recent memory is impaired. Language function intact. Attention span short. Mood and affect remain somewhat anxious, labile, but less aggressive. LABORATORY DATA: Reviewed. IMPRESSION: Unchanged from initial note. PLAN: Continue current psychotropics. Ativan has been stopped. Start Zoloft 25 mg a day for 3 days for his mood, anxiety, irritability, and then increase to 50 mg a day. MAN Elvin FRITZ MD DR: STEPH/payal JOB#: [id number] / [id number]
[2018-08-28] MEDS: MELATONIN 3 MG TABLET PO SCH (19:39)
--- NOTE | 2018-08-28 22:19 | PDOC ---
Exam Note: Jm Note: Please also refer to the separate dictated note~for this date of service dictated separately.~Patient seen individually. Discussed the patient with Nursing staff reviewed the chart.~Reviewed interim history and current functioning. Reviewed vital signs,~Labs/ Radiology~and current medications noted below. Continue current treatment with the changes noted in the dictated addendum note Assessment: Vital Signs/I&O: Vital Signs Date Time Temp Pulse Resp B/P (MAP) Pulse Ox O2 Delivery O2 Flow Rate FiO2 08/28/18 16:16 97.6 85 19 135/94 (108) 98 Room Air I & O 08/27/18 08/27/18 08/28/18 14:59 22:59 06:59 Intake Total 480 ml 720 ml Balance 480 ml 720 ml Labs: Laboratory Tests Test 08/28/18 06:08 White Blood Count 4.4 x10^3/uL (4.0-11.0) Red Blood Count 4.59 x10^6/uL (4.30-5.70) Hemoglobin 12.4 g/dL (13.0-17.5) L Hematocrit 37.5 % (39.0-53.0) L Mean Corpuscular Volume 82 fL (79-100) Mean Corpuscular Hemoglobin 27 pg (25-35) Mean Corpuscular Hemoglobin Concent 33 g/dL (31-37) Red Cell Distribution Width 14.1 % (11.5-14.5) Platelet Count 129 x10^3/uL (140-400) L Neutrophils (%) (Auto) 43 % (31-73) Lymphocytes (%) (Auto) 46 % (24-48) Monocytes (%) (Auto) 9 % (0-9) Eosinophils (%) (Auto) 2 % (0-3) Basophils (%) (Auto) 1 % (0-3) Neutrophils # (Auto) 1.9 x10^3uL (1.8-7.7) Lymphocytes # (Auto) 2.0 x10^3/uL (1.0-4.8) Monocytes # (Auto) 0.4 x10^3/uL (0.0-1.1) Eosinophils # (Auto) 0.1 x10^3/uL (0.0-0.7) Basophils # (Auto) 0.0 x10^3/uL (0.0-0.2) Sodium Level 140 mmol/L (136-145) Potassium Level 4.3 mmol/L (3.5-5.1) Chloride Level 104 mmol/L (98-107) Carbon Dioxide Level 28 mmol/L (21-32) Anion Gap 8 (6-14) Blood Urea Nitrogen 15 mg/dL (8-26) Creatinine 0.8 mg/dL (0.7-1.3) Estimated GFR (Cockcroft-Gault) 121.4 BUN/Creatinine Ratio 19 (6-20) Glucose Level 95 mg/dL (70-99) Calcium Level 8.8 mg/dL (8.5-10.1) Total Bilirubin 0.2 mg/dL (0.2-1.0) Aspartate Amino Transferase (AST) 17 U/L (15-37) Alanine Aminotransferase (ALT) 24 U/L (16-63) Alkaline Phosphatase 78 U/L (46-116) Ammonia 18 mcmol/L (11-34) Total Protein 7.7 g/dL (6.4-8.2) Albumin 3.4 g/dL (3.4-5.0) Albumin/Globulin Ratio 0.8 (1.0-1.7) L Valproic Acid Level 48 mcg/mL (50-100) L Valproic Acid Last Dose Date 08/27/2018 Valproic Acid Last Dose Time 2100 Current Medications: I have reviewed the current psychotropics carefully including drug interactions. Risk benefit ratio favors no change other than as noted in my dictated progress note. Diagnosis: Problems: (1) Major neurocognitive disorder (2) Anxiety disorder (3) Impulse control disorder (4) Dementia, vascular, with delusions (5) Dementia, vascular, with depression (6) Dementia in Alzheimer's disease with delusions (7) Dementia in Alzheimer's disease with depression (8) Impulse control disorder (9) Borderline intellectual disability MAVIS FRITZ MD Aug 28, 2018 22:19
[2018-08-29 06:03] VITALS: BP 127/85
[2018-08-29] MEDS: DOCUSATE SODIUM 100 MG CAPSULE PO SCH ×2 (08:07→19:32)
[2018-08-29] MEDS: DIVALPROEX 125 MG CAP.SPRINK PO SCH ×2 (08:08→19:30)
[2018-08-29] MEDS: carBAMazepine 200 MG TABLET PO SCH ×2 (08:09→19:30)
[2018-08-29] MEDS: QUEtiapine 25 MG TABLET. PO SCH ×3 (08:09→19:31)
[2018-08-29] MEDS: SERTRALINE 25 MG TABLET. PO SCH (08:09)
[2018-08-29] MEDS: amLODIPine BESYLATE 5 MG TABLET PO SCH (08:09)
[2018-08-29] MEDS: FLUTICASONE 50MCG/NASAL SPRAY 16GM BOTTLE. NS SCH (08:11)
[2018-08-29] MEDS: ACETAMINOPHEN 325 MG TABLET PO PRN (10:26)
--- NOTE | 2018-08-29 11:35 | PN ---
DATE: PSYCHIATRIC PROGRESS NOTE DATE OF SERVICE: 08/27/2018. This late entry, 08/27/2018, covers elements not covered in my initial note. SUBJECTIVE: I met with the patient evening of 08/27/2018. The patient slept 5-3/4 hours previous night. The patient is compliant with his medications, does attend group, gets anxious. Zyprexa seems to help his agitation. We will check labs the morning of 08/28/2018. REVIEW OF SYSTEMS: Ambulation impaired, in wheelchair. No CV, , pulmonary, eye, ENT system symptoms on review. Reliability poor. MENTAL STATUS EXAM: Oriented to himself. Insight, judgment, recent memory is impaired. Language function intact. Attention span short. Speech is somewhat difficult to understand typical for him given his intellectual disability. No suicidal or homicidal ideation. LABORATORY DATA: Reviewed. IMPRESSION: Unchanged from initial note. PLAN: No change from initial note. MAVIS FRITZ MD DR: STEPH/payal JOB#: [id number] / [id number]
[2018-08-29 16:19] VITALS: BP 136/60
[2018-08-29] MEDS: MELATONIN 3 MG TABLET PO SCH (19:31)
--- NOTE | 2018-08-29 22:16 | PDOC ---
Exam Note: Jm Note: Please also refer to the separate dictated note~for this date of service dictated separately.~Patient seen individually. Discussed the patient with Nursing staff reviewed the chart.~Reviewed interim history and current functioning. Reviewed vital signs,~Labs/ Radiology~and current medications noted below. Continue current treatment with the changes noted in the dictated addendum note Assessment: Vital Signs/I&O: Vital Signs Date Time Temp Pulse Resp B/P (MAP) Pulse Ox O2 Delivery O2 Flow Rate FiO2 08/29/18 16:19 98.0 74 20 136/60 (85) 96 08/29/18 06:03 Room Air I & O 08/28/18 08/28/18 08/29/18 14:59 22:59 06:59 Intake Total 240 ml 240 ml 120 ml Balance 240 ml 240 ml 120 ml Current Medications: I have reviewed the current psychotropics carefully including drug interactions. Risk benefit ratio favors no change other than as noted in my dictated progress note. Diagnosis: Problems: (1) Anxiety disorder (2) Impulse control disorder (3) Dementia, vascular, with delusions (4) Dementia, vascular, with depression (5) Dementia in Alzheimer's disease with delusions (6) Dementia in Alzheimer's disease with depression (7) Impulse control disorder (8) Borderline intellectual disability (9) Major neurocognitive disorder MAVIS FRITZ MD Aug 29, 2018 22:16
--- NOTE | 2018-08-30 05:50 | PN ---
DATE: 08/28/2018 PSYCHIATRIC PROGRESS NOTE This late entry 08/28/2018 covers elements not covered in my initial note. SUBJECTIVE: I met with the patient in the evening of 08/28/2018 and staffed at a treatment team meeting with the entire team in the morning. The patient is sleeping 6-hour average. Appetite 75-100%. The patient's sister, Loretta, attended the treatment team meeting at length. We discussed his diagnosis, current psychotropics progress. I had previously been contacted by the program director/traffic director/nurse network operations manager on the [facility] along with Yenni Orr, social insurance adviser, since the patient had a court date for assault charges. We did provide a letter to the court indicating he was hospitalized, and if his court date could be postponed post discharge, that would be beneficial to the patient. Overall, the patient is doing better, less anxious, restless. REVIEW OF SYSTEMS: Ambulation impaired, in wheelchair. No CV, , pulmonary, eye, ENT system symptoms on review. Reliability poor. MENTAL STATUS EXAM: Oriented to himself. Insight, judgment, recent memory is impaired, remote is better. Language function intact. Attention span short. Speech somewhat difficult to understand, typical for him. No suicidal or homicidal ideation. LABORATORY DATA: Reviewed. IMPRESSION: Unchanged from initial note including intellectual disability and major depressive disorder, major neurocognitive disorder, Alzheimer, vascular with depression. Rest unchanged. PLAN: No change from initial note. Maintain Tegretol, Depakote, Ativan is being tapered and stopped. Continue Seroquel, melatonin, and Zyprexa p.r.n. MAVIS FRITZ MD DR: STEPH/payal JOB#: [id number] / [id number]
[2018-08-30 06:11] VITALS: BP 123/83
[2018-08-30] MEDS: FLUTICASONE 50MCG/NASAL SPRAY 16GM BOTTLE. NS SCH (07:34)
[2018-08-30] MEDS: DOCUSATE SODIUM 100 MG CAPSULE PO SCH ×2 (07:35→20:11)
[2018-08-30] MEDS: amLODIPine BESYLATE 5 MG TABLET PO SCH (07:35)
[2018-08-30] MEDS: QUEtiapine 25 MG TABLET. PO SCH ×3 (07:35→20:11)
[2018-08-30] MEDS: carBAMazepine 200 MG TABLET PO SCH ×2 (07:36→20:11)
[2018-08-30] MEDS: DIVALPROEX 125 MG CAP.SPRINK PO SCH ×2 (07:37→20:11)
[2018-08-30] MEDS: SERTRALINE 50 MG TABLET. PO SCH (07:39)
[2018-08-30 15:47] VITALS: BP 116/79
[2018-08-30] MEDS: MELATONIN 3 MG TABLET PO SCH (20:11)
--- NOTE | 2018-08-30 22:51 | PDOC ---
Exam Note: Jm Note: Please also refer to the separate dictated note~for this date of service dictated separately.~Patient seen individually. Discussed the patient with Nursing staff reviewed the chart.~Reviewed interim history and current functioning. Reviewed vital signs,~Labs/ Radiology~and current medications noted below. Continue current treatment with the changes noted in the dictated addendum note Assessment: Vital Signs/I&O: Vital Signs Date Time Temp Pulse Resp B/P (MAP) Pulse Ox O2 Delivery O2 Flow Rate FiO2 08/30/18 15:47 98.0 68 18 116/79 (91) 97 08/29/18 06:03 Room Air I & O 08/29/18 08/29/18 08/30/18 15:00 23:00 07:00 Intake Total 960 ml 360 ml Balance 960 ml 360 ml Current Medications: Meds: Current Medications Medications (Trade) Dose Ordered Sig/Kassandra Route PRN Reason Start Time Stop Time Status Last Admin Dose Admin Sertraline HCl (Zoloft) 50 mg DAILY PO 08/30/18 09:00 08/30/18 07:39 I have reviewed the current psychotropics carefully including drug interactions. Risk benefit ratio favors no change other than as noted in my dictated progress note. Diagnosis: Problems: (1) Anxiety disorder (2) Impulse control disorder (3) Dementia, vascular, with delusions (4) Dementia, vascular, with depression (5) Dementia in Alzheimer's disease with delusions (6) Dementia in Alzheimer's disease with depression (7) Impulse control disorder (8) Borderline intellectual disability (9) Major neurocognitive disorder MAVIS FRITZ MD Aug 30, 2018 22:51
[2018-08-31 06:00] VITALS: BP 129/93
[2018-08-31] MEDS: DIVALPROEX 125 MG CAP.SPRINK PO SCH ×2 (07:41→19:53)
[2018-08-31] MEDS: FLUTICASONE 50MCG/NASAL SPRAY 16GM BOTTLE. NS SCH (07:41)
[2018-08-31] MEDS: carBAMazepine 200 MG TABLET PO SCH ×2 (07:42→19:53)
[2018-08-31] MEDS: SERTRALINE 50 MG TABLET. PO SCH (07:42)
[2018-08-31] MEDS: DOCUSATE SODIUM 100 MG CAPSULE PO SCH ×2 (07:42→19:53)
[2018-08-31] MEDS: QUEtiapine 25 MG TABLET. PO SCH ×3 (07:42→19:54)
[2018-08-31] MEDS: amLODIPine BESYLATE 5 MG TABLET PO SCH (07:43)
[2018-08-31 16:14] VITALS: BP 117/79
[2018-08-31] MEDS: MELATONIN 3 MG TABLET PO SCH (19:53)
--- NOTE | 2018-08-31 22:05 | PDOC ---
Exam Note: Mj Note: Please also refer to the separate dictated note~for this date of service dictated separately.~Patient seen individually. Discussed the patient with Nursing staff reviewed the chart.~Reviewed interim history and current functioning. Reviewed vital signs,~Labs/ Radiology~and current medications noted below. Continue current treatment with the changes noted in the dictated addendum note Assessment: Vital Signs/I&O: Vital Signs Date Time Temp Pulse Resp B/P (MAP) Pulse Ox O2 Delivery O2 Flow Rate FiO2 08/31/18 16:14 98.0 72 19 117/79 (92) 99 Room Air I & O 08/30/18 08/30/18 08/31/18 15:00 23:00 07:00 Intake Total 840 ml 480 ml Balance 840 ml 480 ml Current Medications: I have reviewed the current psychotropics carefully including drug interactions. Risk benefit ratio favors no change other than as noted in my dictated progress note. Diagnosis: Problems: (1) Anxiety disorder (2) Impulse control disorder (3) Dementia, vascular, with delusions (4) Dementia, vascular, with depression (5) Dementia in Alzheimer's disease with delusions (6) Dementia in Alzheimer's disease with depression (7) Impulse control disorder (8) Borderline intellectual disability (9) Major neurocognitive disorder MAVIS FRITZ MD Aug 31, 2018 22:05
--- NOTE | 2018-09-01 05:24 | PN ---
DATE: 08/29/2018 PSYCHIATRIC PROGRESS NOTE This late entry 08/29 covers elements not covered in my initial note. SUBJECTIVE: I met with the patient in the evening of 08/29/2018. The patient slept 6-1/4 hours previous night. The patient remains somewhat anxious, a little abrasive at times, but redirects. REVIEW OF SYSTEMS: Ambulation impaired, in wheelchair. No CV, , pulmonary, eye, ENT system symptoms on review. Reliability poor overall. Intellectual functioning consistent at the eighths grade level. MENTAL STATUS EXAM: Oriented to himself. Insight, judgment, recent and remote memory, attention, concentration, fund of knowledge poor, consistent with his diagnosis mentioned in my initial note. PLAN: No change from initial note. MAN Elvin FRITZ MD DR: STEPH/payal JOB#: [id number] / [id number]
[2018-09-01 05:42] VITALS: BP 136/84
[2018-09-01] MEDS: DOCUSATE SODIUM 100 MG CAPSULE PO SCH ×2 (07:39→19:15)
[2018-09-01] MEDS: SERTRALINE 50 MG TABLET. PO SCH (07:40)
[2018-09-01] MEDS: DIVALPROEX 125 MG CAP.SPRINK PO SCH ×2 (07:40→19:14)
[2018-09-01] MEDS: QUEtiapine 25 MG TABLET. PO SCH ×3 (07:41→19:15)
[2018-09-01] MEDS: carBAMazepine 200 MG TABLET PO SCH ×2 (07:41→19:14)
[2018-09-01] MEDS: amLODIPine BESYLATE 5 MG TABLET PO SCH (07:41)
[2018-09-01] MEDS: FLUTICASONE 50MCG/NASAL SPRAY 16GM BOTTLE. NS SCH (07:42)
[2018-09-01 15:38] VITALS: BP 148/77
[2018-09-01] MEDS: MELATONIN 3 MG TABLET PO SCH (19:15)
--- NOTE | 2018-09-01 21:05 | PDOC ---
Exam Note: Jm Note: Please also refer to the separate dictated note~for this date of service dictated separately.~Patient seen individually. Discussed the patient with Nursing staff reviewed the chart.~Reviewed interim history and current functioning. Reviewed vital signs,~Labs/ Radiology~and current medications noted below. Continue current treatment with the changes noted in the dictated addendum note Assessment: Vital Signs/I&O: Vital Signs Date Time Temp Pulse Resp B/P (MAP) Pulse Ox O2 Delivery O2 Flow Rate FiO2 09/01/18 15:38 97.7 86 18 148/77 (100) 97 08/31/18 16:14 Room Air I & O 08/31/18 08/31/18 09/01/18 15:00 23:00 07:00 Intake Total 840 ml 600 ml Balance 840 ml 600 ml Current Medications: I have reviewed the current psychotropics carefully including drug interactions. Risk benefit ratio favors no change other than as noted in my dictated progress note. Diagnosis: Problems: (1) Anxiety disorder (2) Impulse control disorder (3) Dementia, vascular, with delusions (4) Dementia, vascular, with depression (5) Dementia in Alzheimer's disease with delusions (6) Dementia in Alzheimer's disease with depression (7) Impulse control disorder (8) Borderline intellectual disability (9) Major neurocognitive disorder MAVIS FRITZ MD Sep 01, 2018 21:05
--- NOTE | 2018-09-01 21:46 | PN ---
DATE: 08/30/2018 PSYCHIATRIC PROGRESS NOTE This late entry of 08/30/2018 covers elements not covered in my initial note. SUBJECTIVE: I met with the patient in the evening. The patient slept 7 hours previous night. He has been a little more redirectable. The overall intellectual functioning is at the 8th grade level. REVIEW OF SYSTEMS: Ambulation impaired, in wheelchair. No CV, , pulmonary, eye, ENT system symptoms on review. MENTAL STATUS EXAM: Oriented to himself. Insight, judgment, recent memory is impaired. Language function intact. Attention span short. Mood and affect remain somewhat anxious, labile, but improved. LABORATORY DATA: Reviewed. IMPRESSION: Unchanged from initial note. PLAN: No change from initial note. MAN Elvin FRITZ MD DR: STEPH/payal JOB#: [id number] / [id number]
--- NOTE | 2018-09-01 23:55 | PN ---
DATE: PSYCHIATRIC PROGRESS NOTE This late entry, 08/31, covers elements not covered in my initial note. SUBJECTIVE: I met with the patient in the evening of 08/31. The patient slept for 3/4 hours previous night. He has been agitated last evening, anxious, repetitive, obsessive, then did better. He slept well, did well during the day on 08/31. REVIEW OF SYSTEMS: Ambulation impaired, in wheelchair. No CV, , pulmonary, eye, ENT system symptoms on review. Reliability poor. Intellectual functioning consistent with an eighth grade level. MENTAL STATUS EXAM: Oriented to himself and situation. Speech is coherent, difficult to understand at times. Abstraction fair, computation impaired, language function intact, attention span short. Mood and affect remains somewhat anxious, but improved. LABORATORY DATA: Reviewed. IMPRESSION: Unchanged from initial note. PLAN: No change from initial note. MAN Elvin FRITZ MD DR: STEPH/payal JOB#: [id number] / [id number]
[2018-09-02 05:20] VITALS: BP 149/90
[2018-09-02 07:22] LABS: BASO % 0 % (0-3); EOS # 0.1 x10^3/uL (0.0-0.7); EOS % 1 % (0-3); HEMATOCRIT 37.9 % (39.0-53.0); HEMOGLOBIN 12.6 g/dL (13.0-17.5); LYMPH # 2.4 x10^3/uL (1.0-4.8); LYMPH % 49 % (24-48); MEAN CORPUSCULAR HEMOGLOBIN 27 pg (25-35); MEAN CORPUSCULAR HGB CONC 33 g/dL (31-37); MEAN CORPUSCULAR VOLUME 82 fL (79-100); MONO # 0.6 x10^3/uL (0.0-1.1); MONO % 11 % (0-9); NEUT # 1.9 x10^3uL (1.8-7.7); NEUT % 38 % (31-73); PLATELET COUNT 123 x10^3/uL (140-400); RED BLOOD COUNT 4.63 x10^6/uL (4.30-5.70)
[2018-09-02 07:38] LABS: ALBUMIN 3.7 g/dL (3.4-5.0); ALBUMIN/GLOBULIN RATIO 0.9 (1.0-1.7); CALCIUM 9.4 mg/dL (8.5-10.1); CREATININE 0.8 mg/dL (0.7-1.3); GFR 121.4; POTASSIUM 4.8 mmol/L (3.5-5.1); TOTAL BILIRUBIN 0.2 mg/dL (0.2-1.0)
[2018-09-02] MEDS: DIVALPROEX 125 MG CAP.SPRINK PO SCH ×2 (07:48→20:06)
[2018-09-02] MEDS: QUEtiapine 25 MG TABLET. PO SCH ×3 (07:48→20:05)
[2018-09-02] MEDS: amLODIPine BESYLATE 5 MG TABLET PO SCH (07:48)
[2018-09-02] MEDS: DOCUSATE SODIUM 100 MG CAPSULE PO SCH ×2 (07:49→20:05)
[2018-09-02] MEDS: carBAMazepine 200 MG TABLET PO SCH ×2 (07:49→20:05)
[2018-09-02] MEDS: SERTRALINE 50 MG TABLET. PO SCH (07:49)
[2018-09-02] MEDS: FLUTICASONE 50MCG/NASAL SPRAY 16GM BOTTLE. NS SCH (07:55)
[2018-09-02 16:15] VITALS: BP 121/73
[2018-09-02] MEDS: MELATONIN 3 MG TABLET PO SCH (20:06)
--- NOTE | 2018-09-02 22:12 | PDOC ---
Exam Note: Jm Note: Please also refer to the separate dictated note~for this date of service dictated separately.~Patient seen individually. Discussed the patient with Nursing staff reviewed the chart.~Reviewed interim history and current functioning. Reviewed vital signs,~Labs/ Radiology~and current medications noted below. Continue current treatment with the changes noted in the dictated addendum note Assessment: Vital Signs/I&O: Vital Signs Date Time Temp Pulse Resp B/P (MAP) Pulse Ox O2 Delivery O2 Flow Rate FiO2 09/02/18 16:15 97.2 68 20 121/73 (89) 99 09/02/18 05:20 Room Air I & O 09/01/18 09/01/18 09/02/18 14:59 22:59 06:59 Intake Total 1080 ml 480 ml Balance 1080 ml 480 ml Labs: Laboratory Tests Test 09/02/18 06:54 White Blood Count 5.0 x10^3/uL (4.0-11.0) Red Blood Count 4.63 x10^6/uL (4.30-5.70) Hemoglobin 12.6 g/dL (13.0-17.5) L Hematocrit 37.9 % (39.0-53.0) L Mean Corpuscular Volume 82 fL (79-100) Mean Corpuscular Hemoglobin 27 pg (25-35) Mean Corpuscular Hemoglobin Concent 33 g/dL (31-37) Red Cell Distribution Width 14.0 % (11.5-14.5) Platelet Count 123 x10^3/uL (140-400) L Neutrophils (%) (Auto) 38 % (31-73) Lymphocytes (%) (Auto) 49 % (24-48) H Monocytes (%) (Auto) 11 % (0-9) H Eosinophils (%) (Auto) 1 % (0-3) Basophils (%) (Auto) 0 % (0-3) Neutrophils # (Auto) 1.9 x10^3uL (1.8-7.7) Lymphocytes # (Auto) 2.4 x10^3/uL (1.0-4.8) Monocytes # (Auto) 0.6 x10^3/uL (0.0-1.1) Eosinophils # (Auto) 0.1 x10^3/uL (0.0-0.7) Basophils # (Auto) 0.0 x10^3/uL (0.0-0.2) Sodium Level 140 mmol/L (136-145) Potassium Level 4.8 mmol/L (3.5-5.1) Chloride Level 104 mmol/L (98-107) Carbon Dioxide Level 30 mmol/L (21-32) Anion Gap 6 (6-14) Blood Urea Nitrogen 13 mg/dL (8-26) Creatinine 0.8 mg/dL (0.7-1.3) Estimated GFR (Cockcroft-Gault) 121.4 BUN/Creatinine Ratio 16 (6-20) Glucose Level 87 mg/dL (70-99) Calcium Level 9.4 mg/dL (8.5-10.1) Total Bilirubin 0.2 mg/dL (0.2-1.0) Aspartate Amino Transferase (AST) 22 U/L (15-37) Alanine Aminotransferase (ALT) 25 U/L (16-63) Alkaline Phosphatase 73 U/L (46-116) Total Protein 8.0 g/dL (6.4-8.2) Albumin 3.7 g/dL (3.4-5.0) Albumin/Globulin Ratio 0.9 (1.0-1.7) L Current Medications: I have reviewed the current psychotropics carefully including drug interactions. Risk benefit ratio favors no change other than as noted in my dictated progress note. Diagnosis: Problems: (1) Anxiety disorder (2) Impulse control disorder (3) Dementia, vascular, with delusions (4) Dementia, vascular, with depression (5) Dementia in Alzheimer's disease with delusions (6) Dementia in Alzheimer's disease with depression (7) Impulse control disorder (8) Borderline intellectual disability (9) Major neurocognitive disorder MAVIS FRITZ MD Sep 02, 2018 22:12
--- NOTE | 2018-09-03 04:21 | PN ---
DATE: 09/01/2018 PSYCHIATRIC PROGRESS NOTE This late entry, 09/01/2018, covers elements not covered in my initial note. SUBJECTIVE: I met with the patient on the evening of 09/01/2018. The patient slept 6-1/4 hours previous night. Overall, he has had a good day per nursing report, compliant with his medications, able to distance himself from other patients on the unit who are demented and intrusive. He has not been aggressive. REVIEW OF SYSTEMS: Ambulation impaired, in wheelchair. No CV, , pulmonary, eye, ENT system symptoms on review. MENTAL STATUS EXAM: Oriented to himself and situation. Speech is coherent, difficult to understand at times. Abstraction fair, computation impaired, language function intact, attention span short. Mood and affect, lability is improved. Overall intellectual functioning consistent to approximately eighth grade level. LABORATORY DATA: Reviewed. IMPRESSION: Unchanged from initial note. PLAN: No change from initial note. MAVIS FRITZ MD DR: STEPH/payal JOB#: [id number] / [id number]
[2018-09-03 05:48] VITALS: BP 158/85
[2018-09-03] MEDS: DIVALPROEX 125 MG CAP.SPRINK PO SCH ×2 (08:10→19:35)
[2018-09-03] MEDS: FLUTICASONE 50MCG/NASAL SPRAY 16GM BOTTLE. NS SCH (08:10)
[2018-09-03] MEDS: amLODIPine BESYLATE 5 MG TABLET PO SCH (08:11)
[2018-09-03] MEDS: carBAMazepine 200 MG TABLET PO SCH ×2 (08:11→19:36)
[2018-09-03] MEDS: SERTRALINE 50 MG TABLET. PO SCH ×2 (08:11→08:12)
[2018-09-03] MEDS: DOCUSATE SODIUM 100 MG CAPSULE PO SCH ×2 (08:12→19:35)
[2018-09-03] MEDS: QUEtiapine 25 MG TABLET. PO SCH ×3 (08:12→19:36)
[2018-09-03 15:53] VITALS: BP 130/78
[2018-09-03] MEDS: MELATONIN 3 MG TABLET PO SCH (19:35)
--- NOTE | 2018-09-03 22:22 | PDOC ---
Exam Note: Jm Note: Please also refer to the separate dictated note~for this date of service dictated separately.~Patient seen individually. Discussed the patient with Nursing staff reviewed the chart.~Reviewed interim history and current functioning. Reviewed vital signs,~Labs/ Radiology~and current medications noted below. Continue current treatment with the changes noted in the dictated addendum note Assessment: Vital Signs/I&O: Vital Signs Date Time Temp Pulse Resp B/P (MAP) Pulse Ox O2 Delivery O2 Flow Rate FiO2 09/03/18 15:53 98.5 93 18 130/78 (95) 99 09/02/18 05:20 Room Air I & O 09/02/18 09/02/18 09/03/18 14:59 22:59 06:59 Intake Total 960 ml 440 ml Balance 960 ml 440 ml Current Medications: I have reviewed the current psychotropics carefully including drug interactions. Risk benefit ratio favors no change other than as noted in my dictated progress note. Diagnosis: Problems: (1) Anxiety disorder (2) Dementia, vascular, with delusions (3) Impulse control disorder (4) Dementia, vascular, with depression (5) Dementia in Alzheimer's disease with delusions (6) Dementia in Alzheimer's disease with depression (7) Impulse control disorder (8) Borderline intellectual disability (9) Major neurocognitive disorder MAVIS FRITZ MD Sep 03, 2018 22:22
--- NOTE | 2018-09-04 05:18 | PN ---
DATE: 09/02/2018 PSYCHIATRIC PROGRESS NOTE This late entry 09/02/2018 covers elements not covered in my initial note. SUBJECTIVE: I met with the patient in the evening of 09/02/2018. The patient slept 4-3/4 hours previous night. He has been much calmer and as I met with him he was sitting and coloring on the activity table quite content. REVIEW OF SYSTEMS: Ambulation impaired, in wheelchair. No CV, , pulmonary, eye, ENT system symptoms on review. Speech is difficult to understand at times, but unchanged. MENTAL STATUS EXAM: Oriented to himself. Insight, judgment, recent memory is impaired. Language function intact. Attention span short. Mood and affect remains somewhat anxious, labile, but improved. LABORATORY DATA: Reviewed. IMPRESSION: Unchanged from initial note. PLAN: No change from initial note. MAN Elvin FRITZ MD DR: STEPH/payal JOB#: [id number] / [id number]
[2018-09-04 06:29] VITALS: BP 134/87
[2018-09-04] MEDS: DOCUSATE SODIUM 100 MG CAPSULE PO SCH (08:12)
[2018-09-04] MEDS: DIVALPROEX 125 MG CAP.SPRINK PO SCH ×2 (08:12→20:05)
[2018-09-04] MEDS: FLUTICASONE 50MCG/NASAL SPRAY 16GM BOTTLE. NS SCH (08:12)
[2018-09-04] MEDS: carBAMazepine 200 MG TABLET PO SCH ×2 (08:13→20:03)
[2018-09-04] MEDS: SERTRALINE 50 MG TABLET. PO SCH (08:13)
[2018-09-04] MEDS: amLODIPine BESYLATE 5 MG TABLET PO SCH (08:13)
[2018-09-04] MEDS: QUEtiapine 25 MG TABLET. PO SCH ×3 (08:13→20:06)
[2018-09-04 16:28] VITALS: BP 149/84
[2018-09-04] MEDS: MELATONIN 3 MG TABLET PO SCH (20:06)
--- NOTE | 2018-09-04 22:37 | PDOC ---
Exam Note: Jm Note: Please also refer to the separate dictated note~for this date of service dictated separately.~Patient seen individually. Discussed the patient with Nursing staff reviewed the chart.~Reviewed interim history and current functioning. Reviewed vital signs,~Labs/ Radiology~and current medications noted below. Continue current treatment with the changes noted in the dictated addendum note Assessment: Vital Signs/I&O: Vital Signs Date Time Temp Pulse Resp B/P (MAP) Pulse Ox O2 Delivery O2 Flow Rate FiO2 09/04/18 16:28 97.6 79 20 149/84 (105) 100 Room Air I & O 09/03/18 09/03/18 09/04/18 14:59 22:59 06:59 Intake Total 840 ml 480 ml Balance 840 ml 480 ml Current Medications: I have reviewed the current psychotropics carefully including drug interactions. Risk benefit ratio favors no change other than as noted in my dictated progress note. Diagnosis: Problems: (1) Anxiety disorder (2) Dementia, vascular, with delusions (3) Impulse control disorder (4) Dementia, vascular, with depression (5) Dementia in Alzheimer's disease with delusions (6) Dementia in Alzheimer's disease with depression (7) Impulse control disorder (8) Borderline intellectual disability (9) Major neurocognitive disorder MAVIS FRITZ MD Sep 04, 2018 22:37
[2018-09-05] MEDS ORDERED: DIVA125C3 PO (00:15)
[2018-09-05] MEDS ORDERED: MAG355OR17 PO (00:16)
[2018-09-05] MEDS ORDERED: MAGN2400 PO (00:16)
[2018-09-05] MEDS ORDERED: SERT25TA PO (00:17)
[2018-09-05] MEDS ORDERED: OLAN5TAB5 PO (00:17)
[2018-09-05 06:22] VITALS: BP 166/95
[2018-09-05 07:50] VITALS: BP 166/95
[2018-09-05] MEDS: DIVALPROEX 125 MG CAP.SPRINK PO SCH (07:50)
[2018-09-05] MEDS: SERTRALINE 50 MG TABLET. PO SCH (07:50)
[2018-09-05] MEDS: carBAMazepine 200 MG TABLET PO SCH (07:50)
[2018-09-05] MEDS: amLODIPine BESYLATE 5 MG TABLET PO SCH (07:50)
[2018-09-05] MEDS: QUEtiapine 25 MG TABLET. PO SCH (07:50)
[2018-09-05] MEDS: FLUTICASONE 50MCG/NASAL SPRAY 16GM BOTTLE. NS SCH (07:51)
[2018-09-05] MEDS ORDERED: PHEN28OI RC (08:06)
--- NOTE | 2018-09-05 12:48 | PN ---
DATE: 09/03/2018 PSYCHIATRIC PROGRESS NOTE This late entry 09/03/2018 covers elements not covered in my initial note. SUBJECTIVE: I met with the patient in the evening of 09/03/2018. The patient slept 4-3/4 hours previous night. He did well at night, upset with aides oiler and greaser but redirectable. He had to go to the [place] for a brief period of time, then did better rest of the day. REVIEW OF SYSTEMS: Ambulation impaired, in wheelchair. No CV, , pulmonary, eye, ENT system symptoms on review. MENTAL STATUS EXAM: Oriented to himself. Insight, judgment, recent and remote memory, attention, concentration, fund of knowledge poor, consistent with his diagnosis mentioned in my initial note. PLAN: No change from initial note. MAN Elvin FRITZ MD DR: STEPH/payal JOB#: [id number] / [id number]
--- NOTE | 2018-09-05 22:03 | PDOC ---
Exam Note: Jm Note: Please also refer to the separate dictated note~for this date of service dictated separately.~Patient seen individually. Discussed the patient with Nursing staff reviewed the chart.~Reviewed interim history and current functioning. Reviewed vital signs,~Labs/ Radiology~and current medications noted below. Continue current treatment with the changes noted in the dictated addendum note Assessment: Vital Signs/I&O: Vital Signs Date Time Temp Pulse Resp B/P (MAP) Pulse Ox O2 Delivery O2 Flow Rate FiO2 09/05/18 07:50 87 166/95 09/05/18 06:22 98.5 22 99 09/04/18 16:28 Room Air I & O 09/04/18 09/04/18 09/05/18 15:00 23:00 07:00 Intake Total 720 ml 720 ml Balance 720 ml 720 ml Current Medications: I have reviewed the current psychotropics carefully including drug interactions. Risk benefit ratio favors no change other than as noted in my dictated progress note. Diagnosis: Problems: (1) Anxiety disorder (2) Dementia, vascular, with delusions (3) Impulse control disorder (4) Dementia, vascular, with depression (5) Dementia in Alzheimer's disease with delusions (6) Dementia in Alzheimer's disease with depression (7) Impulse control disorder (8) Borderline intellectual disability (9) Major neurocognitive disorder MAVIS FRITZ MD Sep 05, 2018 22:03
--- NOTE | 2018-09-06 02:08 | PN ---
DATE: 09/04/2018 PSYCHIATRIC PROGRESS NOTE This late entry 09/04/2018 covers elements not covered in my initial note. SUBJECTIVE: I met with the patient evening of 09/04/2018. The patient slept 6 hours previous night. Appetite 75%. The patient was also staffed at a treatment team meeting with the entire team in the morning and the patient's sister Loretta attended the treatment team meeting. Please review the patient's history, diagnosis, progress, current psychotropics, discharge plans for 09/04/2018. He has been a little more interactive, social, redirectable, slept 6 hours. REVIEW OF SYSTEMS: Ambulation impaired, in wheelchair. No CV, , pulmonary, eye system symptoms on review. MENTAL STATUS EXAM: Oriented to himself. Insight, judgment, recent and remote memory, attention, concentration, fund of knowledge poor, consistent with his diagnosis mentioned in my initial note. PLAN: No change from initial note. MAVIS FRITZ MD DR: STEPH/payal JOB#: [id number] / [id number]
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
== END 2018-09-05 11:10 | DRG 57 ==
LOC: ER 15:37 → GEROPSY 16:00 → ER 17:10
PROVIDERS: ADMIT Psychiatry & Neurology Psychiatry; ATTEND Psychiatry & Neurology Psychiatry
DX: G30.9 Alzheimer's disease, unspecified (principal); F01.51 Vascular dementia, unspecified severity, with behavioral disturbance; F02.81 Dementia in other diseases classified elsewhere, unspecified severity, with behavioral disturbance; G40.909 Epilepsy, unspecified, not intractable, without status epilepticus; I10 Essential (primary) hypertension; F32.9 Major depressive disorder, single episode, unspecified; F41.9 Anxiety disorder, unspecified; F63.9 Impulse disorder, unspecified; J32.9 Chronic sinusitis, unspecified; Z79.899 Other long term (current) drug therapy; G89.29 Other chronic pain
CPT/HCPCS: 36415; 80053; 80061; 80156; 80164; 80307; 81001; 82140; 82306; 82947; 83036; 83540; 83550; 83735; 84436; 84443; 84480; 85025; 86592; G0480; 99285-25